=== PATIENT | female | born 1995 | race Caucasian/White ===

== ENCOUNTER 2022-02-06 02:33 | Emergency (ER) | payer BC ==
[~2022-02-06 02:33] MED LIST: COLACE 100MG C100 MG PO; IBUPROFEN600 MG PO; NORCO 5-325 TA1 EACH PO
== END 2022-02-06 05:38 | disposition left against medical advice (07) ==
LOC: ER1 02:33
DX: Z53.21 Procedure and treatment not carried out due to patient leaving prior to being seen by health care provider (principal)